=== PATIENT | female | born 1990 | race Two or more races ===

== ENCOUNTER 2017-03-28 17:00 | Observation (INO) | payer MEDICAID ==
--- NOTE | 2017-03-28 19:01 | OBPROG ---
Labor Progress Note Assessment/Plan: Assessment: IUP at 40 3/7 wks for induction on 03/29 cervical ripening with watkins catheter Plan: watkins placed, d/c home 03/28/17 18:58 Subjective/Intrapartum Course: 03/28/17 18:59 Pt doing well. mild BH ctxns, GFM, BOWI, no bleeding. understands watkins for ripening. - SVE Dilation (cm): 1 Effacement (%): 50 Station: -2 Membranes: Intact - Contraction Pattern Assessment Current Contraction Pattern: Irregular - FHR Assessment Kessler FHR (bpm): 120 FHR Pattern Variability: Moderate FHR Category: 1 (NST is reactive, GBTBV, accels, no decels) - Procedures Non-surgical Procedures: Other (Specify) (watkins cath placed into cervix without problems after 4 betadine wipes to cx, filled with 30 cc fluid) Oxytocin Orders Assessment - Pre-Induction/Augmentation Assessment Gestational Age: 40 week(s) and 5 day(s) ICD10 Worksheet Patient Problems: Problems Problem Status Onset Post-dates Acute
== END 2017-03-28 19:04 | disposition home or self-care (01) ==
LOC: FLD 17:39 → INTOOBSV 17:39
PROVIDERS: ADMIT Obstetrics & Gynecology; ATTEND Obstetrics & Gynecology
PROC: 0U7C7ZZ Dilation of Cervix, Via Natural or Artificial Opening (ICD-10-PCS; principal; 2017-03-28)
DX: O48.0 Post-term pregnancy (principal); Z3A.40 40 weeks gestation of pregnancy

== ENCOUNTER 2017-03-29 08:24 | Inpatient (IN) | payer MEDICAID ==
[2017-03-29] MEDS ORDERED: OLIVE OIL 118 ML BTL MISC PRN (09:18)
[2017-03-29] MEDS ORDERED: IBUPROFEN 600 MG TAB PO PRN (09:18)
[2017-03-29] MEDS ORDERED: TERBUTALINE SULFATE 1 MG/ML VIAL IV PRN (09:18)
[2017-03-29] MEDS ORDERED: LR 1,000 ML IV PRN (09:18)
[2017-03-29] MEDS ORDERED: MISOPROSTOL 200 MCG TAB PR PRN (09:18)
[2017-03-29] MEDS ORDERED: EPSOM SALT 454 GM TP PRN (09:18)
[2017-03-29] MEDS ORDERED: OXYTOCIN 20 UNIT in LR 1,000 ML IV PRN (09:18)
--- NOTE | 2017-03-29 09:23 | OBPROG ---
Labor Progress Note Assessment/Plan: Assessment:cat 2 denies pain watkins bulb remains in cervix regular diet low dose pitocin and watkins bulb the plan irregular contractions + bloody show per patient Plan: low dose pitocin and watkins bulb tractions q hour 03/29/17 09:21 Subjective/Intrapartum Course: 03/29/17 09:20 [address] bulb [address] in place. 2/50/-3 cephalic will do low dose pitocin. Has felt some cramping however able to rest through the night - SVE Dilation (cm): 2 Effacement (%): 50 Membranes: Intact - Contraction Pattern Assessment Current Contraction Pattern: Irregular - FHR Assessment Kessler FHR (bpm): 135 FHR Pattern Variability: Moderate FHR Category: 2 - Physical Exam General Appearance: WD/WN, alert, no apparent distress Respiratory: chest non-tender, lungs clear, normal breath sounds Cardiac/Chest: regular rate, rhythm Abdomen: normal bowel sounds Extremities: normal range of motion, Christine's sign (negative bilaterally) DTR- Lower Extremities: Knee (R): 1+ (no clonus), Knee (L): 1+ Skin: warm/dry Neuro/Psych: no motor/sensory deficits, alert, normal mood/affect, oriented x 3 ICD10 Worksheet Patient Problems: Problems Problem Status Onset Post-dates Acute
[2017-03-29] MEDS ORDERED: OXYTOCIN 30 UNIT in NS 500 ML IV SCH (09:30)
[2017-03-29 09:58] LABS: PLATELET COUNT 288 10^3/uL (150-400)
[2017-03-29] MEDS ORDERED: LIDOCAINE 1% 300 MG/30 ML SDV ONE (12:15)
--- NOTE | 2017-03-29 12:40 | OBPROG ---
Labor Progress Note Assessment/Plan: Assessment:cat 1 feeling occasional cramping now watkins bulb remains in cervix regular diet low dose pitocin and watkins bulb the plan watkins bulb q 1h to tractions irregular contractions continue poc Plan: low dose pitocin and watkins bulb tractions q hour 03/29/17 09:21 03/29/17 12:39 Subjective/Intrapartum Course: 03/29/17 09:[address] bulb [address] in [address]. 2/50/-3 cephalic will do low dose pitocin. Has felt some cramping however able to rest through the night 03/29/17 12:38 doing well. Beginning to feel some contractions. Watkins bulb remains inplace. Objective: 03/29/17 09:35 Patient ABO/Rh O POSITIVE 03/29/17 09:35 - SVE Dilation (cm): 2 Effacement (%): 75 Station: -2 Membranes: Intact - Contraction Pattern Assessment Current Contraction Pattern: Irregular - FHR Assessment Kessler FHR (bpm): 140 FHR Pattern Variability: Moderate FHR Category: 1 ICD10 Worksheet Patient Problems: Problems Problem Status Onset Post-dates Acute
--- NOTE | 2017-03-29 15:11 | OBPROG ---
Labor Progress Note Assessment/Plan: Assessment: EFM : category 1 Contractions: q 2-3 mod Pitocin 10 mu VSS Patient feeling contractions but coping well Watkins bulb removed manually with tugging CX: 3-4/70/-3 soft posterior cephalic Plan: 03/29/17 15:08 Continue pitocin per standard protocol Subjective/Intrapartum Course: 03/29/17 09:20 Watkins bulb remains in place. 250/-3 cephalic will do low dose pitocin. Has felt some cramping however able to rest through the night 03/29/17 12:38 doing well. Beginning to feel some contractions. Watkins bulb remains inplace. 03/29/17 15:07 Patient states she is feeling more uncomfortable with contractions and they are more regular. Ready for watkins bulb to come out. Objective: 03/29/17 09:35 Patient ABO/Rh O POSITIVE 03/29/17 09:35 - SVE Dilation (cm): 3, 4 Effacement (%): 75 Station: -3 Membranes: Intact - Contraction Pattern Assessment Current Contraction Pattern: Regular - FHR Assessment Kessler FHR (bpm): 145 FHR Pattern Variability: Moderate FHR Category: 1 Oxytocin Orders Assessment - Pre-Induction/Augmentation Assessment Gestational Age: 40 week(s) and 6 day(s) ICD10 Worksheet Patient Problems: Problems Problem Status Onset Post-dates Acute
--- NOTE | 2017-03-29 17:25 | OBPROG ---
Labor Progress Note Assessment/Plan: Assessment:cat 1 feeling contractions q 2-3 minutes pitocin to half 7 mu o2 10l per maskoff exam 80/-2 cephalic posterior soft declines rom feeling grater pain with the contractions feeling back pain with the contractions offered sterile water injections Plan: pitocin per protocol continues. Discussed ways to assist with the pain and ways to cope 03/29/17 09:21 03/29/17 12:39 03/29/17 17:22 Subjective/Intrapartum Course: 03/29/17 09:20 Watkins bulb remains in place. 50/-3 cephalic will do low dose pitocin. Has felt some cramping however able to rest through the night 03/29/17 12:38 doing well. Beginning to feel some contractions. Watkins bulb remains inplace. 03/29/17 15:07 Patient states she is feeling more uncomfortable with contractions and they are more regular. Ready for watkins bulb to come out. Objective: 03/29/17 09:35 Patient ABO/Rh O POSITIVE 03/29/17 09:35 - SVE Membranes: Intact - Contraction Pattern Assessment Current Contraction Pattern: Regular - FHR Assessment Kessler FHR (bpm): 160 FHR Pattern Variability: Moderate FHR Category: 1 Oxytocin Orders Assessment - Pre-Induction/Augmentation Assessment Gestational Age: 40 week(s) and 6 day(s) ICD10 Worksheet Patient Problems: Problems Problem Status Onset Post-dates Acute
--- NOTE | 2017-03-29 19:32 | OBPROG ---
Labor Progress Note Assessment/Plan: Assessment:cat 1 feeling contractions q 2-3 minutes pitocin at 7 mu exam 3-4/80/-2 cephalic posterior soft arom clear fluid feeling back pain with the contractions offered sterile water injections Plan: pitocin per protocol continues. Discussed ways to assist with the pain and ways to cope 03/29/17 09:21 03/29/17 12:39 03/29/17 17:22 03/29/17 19:31 Subjective/Intrapartum Course: 03/29/17 09:20 Watkins bulb remains in place. 50/-3 cephalic will do low dose pitocin. Has felt some cramping however able to rest through the night 03/29/17 12:38 doing well. Beginning to feel some contractions. Watkins bulb remains inplace. 03/29/17 15:07 Patient states she is feeling more uncomfortable with contractions and they are more regular. Ready for watkins bulb to come out. 03/29/17 19:30 Feeling greater pain with the contractions. Complaint of back pain with contractions. Desires nitrous to assist with pain relief. Discussed sterile water injections to assist with back pain Objective: 03/29/17 09:35 Patient ABO/Rh O POSITIVE 03/29/17 09:35 - SVE Dilation (cm): 3, 4 Effacement (%): 75 Station: -2 Membranes: AROM Amniotic Fluid Color: Clear - Contraction Pattern Assessment Current Contraction Pattern: Regular - FHR Assessment Kessler FHR (bpm): 135 FHR Pattern Variability: Moderate FHR Category: 2 - Procedures Non-surgical Procedures: Amniotomy Oxytocin Orders Assessment - Pre-Induction/Augmentation Assessment Gestational Age: 40 week(s) and 6 day(s) ICD10 Worksheet Patient Problems: Problems Problem Status Onset Post-dates Acute
[2017-03-29] MEDS ORDERED: ONDANSETRON 4 MG/2 ML VIAL IVP PRN (20:26)
[2017-03-29] MEDS ORDERED: PHENYLEPHRINE HCL 100 MCG/ML SYR IVP PRN (20:26)
[2017-03-29] MEDS ORDERED: LR 500 ML IV SCH (20:30)
[2017-03-29] MEDS ORDERED: fentaNYL 2MCG/ML/BUP 0.1% RTU 100 ML EP SCH (20:30)
[2017-03-29] MEDS ORDERED: BUPIVACAINE 0.25% 30 ML SDV ONE (20:32)
[2017-03-29] MEDS ORDERED: PHENYLEPHRINE HCL 100 MCG/ML SYR ONE (20:32)
[2017-03-29] MEDS ORDERED: fentaNYL 100 MCG/2 ML INJ ONE (20:32)
--- NOTE | 2017-03-29 20:40 | GHP ---
[f rep st] HISTORY AND PHYSICAL DATE OF ADMISSION: 03/29/2017 HISTORY OF PRESENT ILLNESS: The patient is a 1, para 0, 26-year-old with an EDC of 8, which gives her a gestational age of 40 and 6/7 weeks', who comes in at 7:30 a.m. on 03/29/2016 fo r induction of labor. On Wednesday evening patient received a Loaiza bulb. The patient was fingertip to 1 cm at that time, 50% effaced, -3 station, cephalic. Today on initial exam, minimal change, 2 cm, 75% effaced, -3 station, cephalic. Loaiza bulb remains in place. We will begin Pitocin per low-dose protocol. The patient has been receiving care through [facility] since 17 weeks for new OB intake. The patient had a 12 week ultrasound that verified an CARISSA of 03/23/2017. MEDICAL HISTORY: History of a back injury. REPORT ENDED /[id number]/MODL
[2017-03-29] MEDS ORDERED: fentaNYL 200 MCG, BUPIVACAINE 0.5% 20 ML in NS 100 ML EP SCH (21:00)
--- NOTE | 2017-03-29 21:12 | OBPROG ---
Labor Progress Note Assessment/Plan: Assessment:cat 2 early decelerations feeling contractions q 2-3 minutes pitocin at 7 mu exam 3-/80/-1 cephalic anterior soft clear fluid epidural for pain relief Plan: pitocin per protocol continues. epidural for pain relief 03/29/17 09:21 03/29/17 12:39 03/29/17 17:22 03/29/17 19:31 03/29/17 21:10 Subjective/Intrapartum Course: 03/29/17 09:20 Watkins bulb remains in place. 50/-3 cephalic will do low dose pitocin. Has felt some cramping however able to rest through the night 03/29/17 12:38 doing well. Beginning to feel some contractions. Watkins bulb remains inplace. 03/29/17 15:07 Patient states she is feeling more uncomfortable with contractions and they are more regular. Ready for watkins bulb to come out. 03/29/17 19:30 Feeling greater pain with the contractions. Complaint of back pain with contractions. Desires nitrous to assist with pain relief. Discussed sterile water injections to assist with back pain 03/29/17 21:10 Feeling better after the epidural placed for pain relief. Objective: 03/29/17 09:35 Patient ABO/Rh O POSITIVE 03/29/17 09:35 - SVE Dilation (cm): 3, 4 Effacement (%): 80 Station: -1 Membranes: AROM Amniotic Fluid Color: Clear - Contraction Pattern Assessment Current Contraction Pattern: Regular - FHR Assessment Kessler FHR (bpm): 135 FHR Pattern Variability: Moderate FHR Category: 2 - Procedures Non-surgical Procedures: Amniotomy Oxytocin Orders Assessment - Pre-Induction/Augmentation Assessment Gestational Age: 40 week(s) and 6 day(s) ICD10 Worksheet Patient Problems: Problems Problem Status Onset Post-dates Acute
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
--- NOTE | 2017-03-29 22:13 | PREANESOB ---
Obstetric Pre-Anesthesia Info - General Info Proposed Procedure: Labor and delivery with pitocin. : 1 Para: 0 Gestational Age: 40 week(s) and 6 day(s) - Info Status: Full Term Monitors: External FHR Baseline (bpm): 125 FHR Pattern: Reassuring - Labor Status Cervical Dilation per last OB SVE: 3, 4 Station per last OB SVE: -1 Amniotic Fluid Color: Clear Pitocin: In Use Indications for Labor Analgesia: Induction of Labor, Pain Control Labor Epidural: Proposed Anesthesia ROS: Lumbar discectomy at L45. Allergies/Adverse Reactions: Allergy/AdvReac Type Severity Reaction Status Date / Time No Allergies [NKDA] Allergy Verified 03/28/17 18:24 Home Medications: Medication Instructions Recorded Ferrous Sulfate [Iron] 03/29/17 Vit27&Calcium/Iron/FA 03/29/17 [] Visit Medications: Generic Name Dose Route Start Last Admin Trade Name Freq PRN Reason Stop Dose Admin Diphenhydramine HCl 25 - 50 mg 03/29/17 20:26 Benadryl Injection IVP 09/25/17 20:25 Q6HRS PRN Itching Lactated Ringer's 1,000 mls @ 0 mls/hr 03/29/17 09:18 Lr IV 03/30/17 09:17 PRN PRN SEE PROTOCOL CONDITIONS Protocol Per Protocol Oxytocin 20 unit/ Lactated 1,002 mls @ 150 mls/hr 03/29/17 09:18 Ringer's IV PRN PRN Post- bleeding Oxytocin 30 unit/ Sodium 503 mls @ 0 mls/hr 03/29/17 09:30 Chloride IV 09/25/17 09:29 CONT AUGUSTINE Protocol Per Protocol Lactated Ringer's 500 mls @ 0 mls/hr 03/29/17 20:30 Lr IV 09/25/17 20:29 CONT AUGUSTINE As Directed Fentanyl 200 mcg/ Bupivacaine 100 mls @ 0 mls/hr 03/29/17 21:00 HCl 20 ml/ Sodium Chloride EP 04/08/17 20:59 CONT AUGUSTINE Protocol As Directed Ibuprofen 600 mg 03/29/17 09:18 Motrin PO 09/25/17 09:17 Q6HRS PRN post , inflammation Magnesium Sulfate 454 gm 03/29/17 09:18 Epsom Salt TP 08/11/18 09:17 Q1H PRN perineal discomfort Misoprostol 800 - 1,000 mcg 03/29/17 09:18 Cytotec MS ONCE PRN Vaginal Atony/Bleeding [place] Oil 118 ml 03/29/17 09:18 Sweet Oil MISC 09/25/17 09:17 ONCE PRN perineal massage Ondansetron HCl 4 mg 03/29/17 20:26 Zofran IVP 03/30/17 20:25 Q4HRS PRN Nausea/Vomiting, Can't Take PO Phenylephrine HCl 100 mcg 03/29/17 20:26 Neosynephrine IVP 09/25/17 20:25 .Q2M PRN Hypotension Terbutaline Sulfate 0.25 mg 03/29/17 09:18 Brethine IV 09/25/17 09:17 ONCE PRN Tachysystole Discontinued Medications Generic Name Dose Route Start Last Admin Trade Name Freq PRN Reason Stop Dose Admin Bupivacaine HCl Confirm 03/29/17 20:32 Sensorcaine 0.25% Sdv Administered 03/29/17 20:33 Dose 30 ml .ROUTE .STK-MED ONE Fentanyl Confirm 03/29/17 20:32 Sublimaze Administered 03/29/17 20:33 Dose 100 mcg .ROUTE .STK-MED ONE Lidocaine HCl Confirm 03/29/17 12:15 Lidocaine Hcl 1% Administered 03/29/17 12:16 Dose 300 mg .ROUTE .STK-MED ONE Phenylephrine HCl Confirm 03/29/17 20:32 Neosynephrine Administered 03/29/17 20:33 Dose 1,000 mcg .ROUTE .STK-MED ONE - Anesthesia History Response to Local Anesthetics: Normal Anesthesia & Operative History: No Prior Problems Family Anesthesia History: Negative - Social History Substance Use/Abuse: Denies - Vital Signs Blood Pressure: 129/88 Heart Rate: 114 Respiratory Rate: 24 Height/Weight (Nursing): Height 170.18 cm Weight 89.358 kg - Focused Exam Neck exam: FROM Mallampati Score: Class 1 Mouth exam: normal dental/mouth exam Pulmonary: no respiratory distress Cardiovascular: regular rate and rhythym Labs: 03/29/17 09:35 Patient ABO/Rh O POSITIVE 03/29/17 09:35 - Plan Anesthetic Plan: KRAIG Consent Signed and on Chart: Yes Patient/Guardian Understands and Agrees to Plan: Yes Urgent/Emergent Case: Remy rios completed preop but documented later for safe timely pt care
--- NOTE | 2017-03-29 22:22 | POSTANESTH ---
Post Anesthetic Evaluation Cardiovascular Status: Normal, Stable, Similar to Pre-Op Cond Respiratory Status: Normal, Stable, Similar to Pre-op Cond. Level of Consciousness/Mental Status: Can Participate in Eval, Alert and Oriented (BP treated with phenylephrine prn.) Pain Control: Adequate, Prn Tx Ordered Nausea/Vomiting Control: Adequate, Prn Tx Ordered Complications Possibly Related to Anesthesia: None Noted
--- NOTE | 2017-03-30 00:27 | OBPROG ---
Labor Progress Note Assessment/Plan: Assessment:cat 2 variable decelerations contractions q 2-3 minutes comfortable with the epidural pitocin at 5mu mvus [address] to assist with pitocin administration exam 6-7/80/0 cephalic anterior soft clear fluid caput with exam Plan: pitocin per protocol continues. 03/29/17 09:21 03/29/17 12:39 03/29/17 17:22 03/29/17 19:31 03/29/17 21:10 03/30/17 00:25 Subjective/Intrapartum Course: 03/29/17 09:20 Watkins bulb remains in place. 250/-3 cephalic will do low dose pitocin. Has felt some cramping however able to rest through the night 03/29/17 12:38 doing well. Beginning to feel some contractions. Watkins bulb remains inplace. 03/29/17 15:07 Patient states she is feeling more uncomfortable with contractions and they are more regular. Ready for watkins bulb to come out. 03/29/17 19:30 Feeling greater pain with the contractions. Complaint of back pain with contractions. Desires nitrous to assist with pain relief. Discussed sterile water injections to assist with back pain 03/29/17 21:10 Feeling better after the epidural placed for pain relief. 03/30/17 00:24 Comfortable with the epidural denies pain Objective: 03/29/17 09:35 Patient ABO/Rh O POSITIVE 03/29/17 09:35 Temp Pulse Resp BP Pulse Ox 114 H 24 H 129/88 H 03/29/17 22:19 03/29/17 22:19 03/29/17 22:19 - SVE Dilation (cm): 6, 7 Effacement (%): 80 Station: 0 Membranes: AROM Amniotic Fluid Color: Clear - Contraction Pattern Assessment Current Contraction Pattern: Regular - FHR Assessment Kessler FHR (bpm): 125 FHR Pattern Variability: Moderate FHR Category: 2 (variable decelerations) - Procedures Non-surgical Procedures: Amniotomy Oxytocin Orders Assessment - Pre-Induction/Augmentation Assessment Gestational Age: 40 week(s) and 6 day(s) ICD10 Worksheet Patient Problems: Problems Problem Status Onset Post-dates Acute
[2017-03-30] MEDS ORDERED: ACETAMINOPHEN 500 MG TAB ONE (03:04)
[2017-03-30] MEDS ORDERED: ACETAMINOPHEN 500 MG TAB PO ONE ×2 (03:15→08:15)
[2017-03-30] MEDS ORDERED: GENTAMICIN PHARMACY TO DOSE MISC SCH (05:30)
[2017-03-30] MEDS ORDERED: AMPICILLIN SODIUM 1 GM in NS 50 ML IV SCH ×2 (05:30→06:30)
[2017-03-30] MEDS ORDERED: AMPICILLIN SODIUM 2 GM in STERILE WATER INJ 25 ML IV ONE (05:45)
--- NOTE | 2017-03-30 05:52 | OBPROG ---
Labor Progress Note Assessment/Plan: Assessment:cat 2 febrile contractions q 2-3 minutes comfortable with the epidural pitocin at 5mu mvus 160 dcd iupc fell out exam /+! cephalic anterior soft clear fluid continues Plan: pitocin per protocol continues. Attempt to push when 10 cm minimAL DESCENT OF THE HEAD LABORED DOWN X 2H 03/29/17 09:21 03/29/17 12:39 03/29/17 17:22 03/29/17 19:31 03/29/17 21:10 03/30/17 00:25 03/30/17 05:50 Subjective/Intrapartum Course: 03/29/17 09:20 Watkins bulb remains in place. /-3 cephalic will do low dose pitocin. Has felt some cramping however able to rest through the night 03/29/17 12:38 doing well. Beginning to feel some contractions. Watkins bulb remains inplace. 03/29/17 15:07 Patient states she is feeling more uncomfortable with contractions and they are more regular. Ready for watkins bulb to come out. 03/29/17 19:30 Feeling greater pain with the contractions. Complaint of back pain with contractions. Desires nitrous to assist with pain relief. Discussed sterile water injections to assist with back pain 03/29/17 21:10 Feeling better after the epidural placed for pain relief. 03/30/17 00:24 Comfortable with the epidural denies pain 03/30/17 05:50 Temp antibiotics to be started 102.6. Objective: 03/29/17 09:35 Patient ABO/Rh O POSITIVE 03/29/17 09:35 Temp Pulse Resp BP Pulse Ox 114 H 24 H 129/88 H 03/29/17 22:19 03/29/17 22:19 03/29/17 22:19 - SVE Dilation (cm): 10 Effacement (%): 100 Station: +2 Membranes: AROM Amniotic Fluid Color: Clear - Contraction Pattern Assessment Current Contraction Pattern: Regular - Procedures Non-surgical Procedures: Amniotomy Oxytocin Orders Assessment - Pre-Induction/Augmentation Assessment Gestational Age: 40 week(s) and 6 day(s) ICD10 Worksheet Patient Problems: Problems Problem Status Onset Post-dates Acute
[2017-03-30] MEDS ORDERED: GENTAMICIN 100 MG/NACL 100 ML IV SCH (06:30)
[2017-03-30] MEDS ORDERED: AMPICILLIN SODIUM 1 GM in STERILE WATER INJ 15 ML IV SCH (06:30)
--- NOTE | 2017-03-30 06:45 | OBDEL ---
Info Type: Vaginal Presentation at Delivery: Vertex L&D Analgesia/Anesthesia Type: Epidural GBS+: No Intrapartum Medications: Generic Name Dose Route Start Last Admin Trade Name Tyler PRN Reason Stop Dose Admin Ondansetron HCl 4 mg 03/29/17 20:26 03/30/17 03:11 Zofran IVP 03/30/17 20:25 4 mg Q4HRS PRN Administration Nausea/Vomiting, Can't Take PO Discontinued Medications Generic Name Dose Route Start Last Admin Trade Name Tyler PRN Reason Stop Dose Admin Acetaminophen 1,000 mg 03/30/17 03:15 03/30/17 03:15 Tylenol PO 03/30/17 03:16 1,000 mg ONCE ONE Administration Ampicillin Sodium 2 gm/ 25 mls @ 100 mls/hr 03/30/17 05:45 03/30/17 05:56 Sterile Water IV 03/30/17 05:59 25 mls ONCE ONE Administration - Hospital Course Intrapartum: 03/29/17 09:20 Watkins bulb remains in place. /-3 cephalic will do low dose pitocin. Has felt some cramping however able to rest through the night 03/29/17 12:38 doing well. Beginning to feel some contractions. Watkins bulb remains inplace. 03/29/17 15:07 Patient states she is feeling more uncomfortable with contractions and they are more regular. Ready for watkins bulb to come out. 03/29/17 19:30 Feeling greater pain with the contractions. Complaint of back pain with contractions. Desires nitrous to assist with pain relief. Discussed sterile water injections to assist with back pain 03/29/17 21:10 Feeling better after the epidural placed for pain relief. 03/30/17 00:24 Comfortable with the epidural denies pain 03/30/17 05:50 Temp antibiotics to be started 102.6. Indications for Delivery: Elective Vaginal Delivery - Delivery Provider Delivery Physician/CNM: Anna Greer Proctoring Provider: Kandy Floewrs - Labor and Delivery Onset of Contractions Date: 03/29/17 Onset of Contractions Time: 13:30 Onset of Contractions Type: Induced Rupture of Membranes Date: 03/30/17 Rupture of Membranes Time: 19:04 Rupture of Membranes Type: Artificial Amniotic Fluid Color: Clear Dilation Complete Date: 03/30/17 Dilation Complete Time: 02:45 Placenta Delivery Date: 03/30/17 Placenta Delivery Time: 06:28 Total Hours of Labor: 16 Non-surgical Procedures: Amniotomy Laceration: Other (Specify) (right vaginal wall repair right and left periurethral left periurethral repaired) Repair: 3-0 Vaginal Needle Count Correct: Yes Vaginal Sweep Performed: No EBL: 350 Delivery Events: None - Medications Labor Augmentation/Induction Methods Used: Pitocin, Watkins Bulb Labor Augmentation/Induction Indication: Elective [place] Data CARISSA: 03/23/17 Gestational Age: 41 week(s) and 0 day(s) Kessler Delivery Date: 03/30/17 Delivery Time: 06:24 Sex of : Female Score (1 Min): 8 Score (5 Min): 9 ICD10 Worksheet Patient Problems: Problems Problem Status Onset Chorioamnionitis, delivered, current hospitalization Acute Vaginal delivery Acute Post-dates Acute - ICD10 Problem Qualifiers (1) Vaginal delivery (2) Chorioamnionitis, delivered, current hospitalization
[2017-03-31] MEDS: DOCUSATE SODIUM 100 MG CAP PO SCH ×2 (10:29→21:44)
--- NOTE | 2017-03-31 15:32 | OBPP ---
Progress Note Assessment/Plan: Assessment: PPD 1 s/p chorio - afeb since delivery Plan: routine care 03/31/17 15:29 Subjective/ Course: 03/31/17 15:31 Pt doing well. Baby has had some good latches - working on BF. bld is light. urinating fine. bottom not too sore - using ibu and ice. Objective: 03/29/17 09:35 Patient ABO/Rh O POSITIVE 03/29/17 09:35 Temp Pulse Resp BP Pulse Ox 36.6 C 79 20 112/74 97 03/31/17 08:57 03/31/17 08:57 03/31/17 08:57 03/31/17 08:57 03/31/17 05:00 Uterine Position/Fundal Height: Umbilicus -1 Uterine Tone: Firm Physical Exam - Physical Exam Abdomen: non-tender, soft, other (FF at umb -1, normal lochia) Extremities: non-tender, pedal edema (mild) Skin: normal color, warm/dry Neuro/Psych: alert, normal mood/affect
[2017-04-01 09:28] VITALS: BP 111/79; PULSE 74; RESP 17; TEMP 97.9; O2SAT 97
--- NOTE | 2017-04-01 14:16 | OBGCSDC ---
General Delivery Information - General Info : 1 Para: 1 Abortions: 0 Type: Vaginal L&D Analgesia/Anesthesia Type: Epidural Admission Date: 03/29/17 Labs: Patient ABO/Rh O POSITIVE 03/29/17 09:35 Hct 38.8 % (38.0-47.0) 03/29/17 09:35 - Hospital Course Intrapartum: 03/29/17 09:[address]. /-3 cephalic will do low dose pitocin. Has felt some cramping however able to rest through the night 03/29/17 12:38 doing well. Beginning to feel some contractions. Watkins bulb remains inplace. 03/29/17 15:07 Patient states she is feeling more uncomfortable with contractions and they are more regular. Ready for watkins bulb to come out. 03/29/17 19:30 Feeling greater pain with the contractions. Complaint of back pain with contractions. Desires nitrous to assist with pain relief. Discussed sterile water injections to assist with back pain 03/29/17 21:10 Feeling better after the epidural placed for pain relief. 03/30/17 00:24 Comfortable with the epidural denies pain 03/30/17 05:50 Temp antibiotics to be started 102.6. : 03/31/17 15:31 Pt doing well. Baby has had some good latches - working on BF. bld is light. urinating fine. bottom not too sore - using ibu and ice. 04/01/17 17:51 S) Pt doing well, reports min pain and bleeding. she is ambulating and voiding without difficulty. She is . She desires discharge home today. O) VSS, afebrile constitutional: HNWF, A&Ox3 HEENT: normocephalic, atraumatic, supple Heart: RRR, No murmur Chest: CTA-B Abdomen: Soft, nontender Uterus: Firm at U-2 Lochia: Minimal rubra Perineum: Intact, healing well Extremities: Trace edema, and negative Christine's sign Neuro: Grossly normal A) 26-year-old S/P PPD#2 P) Discharge home today Continue Pelvic rest x6wks Discussed danger signs (infection, preeclampsia, depression, heavy bleeding, etc) RTO in 4/6 weeks Vaginal - Delivery Provider Delivery Physician/CNM: Anna Greer - Diagnosis Labor: Induced Rupture of Membranes Type: Artificial Amniotic Fluid Color: Clear Laceration: Other (Specify) (right vaginal wall repair right and left periurethral left periurethral repaired) Repair: 3-0 Delivery Events: None - Procedures Non-surgical Procedures: Amniotomy - Delivery Non-surgical Procedures: Amniotomy EBL: [address] CARISSA: 03/23/17 Gestational Age: 41 week(s) and 2 day(s) [place] Delivery Date: 03/30/17 Delivery Time: 06:24 Sex of Infant: Female Score (1 Min): 8 Score (5 Min): 9 Discharge Information - Discharge Information Condition: Good Instruction/Follow Up: Four Weeks, Six Weeks
[2017-04-01] MEDS: DOCUSATE SODIUM 100 MG CAP PO SCH (14:39)
== END 2017-04-01 15:05 | disposition home or self-care (01) | DRG 775 ==
LOC: FLD 08:24 → FOB 03-30 10:30
PROVIDERS: ADMIT Advanced Practice Midwife; ATTEND Advanced Practice Midwife
DX: O99.02 Anemia complicating childbirth (principal); O71.4 Obstetric high vaginal laceration alone; Z37.0 Single live birth; D64.9 Anemia, unspecified; Z3A.41 41 weeks gestation of pregnancy
CPT/HCPCS: J0290; J1580; J2370; J2405; J2590; J3010; J3105